=== PATIENT | female | born 1960 | race Caucasian/White ===

== ENCOUNTER → 2020-05-18 | Outpatient (CLI) | payer BC, OTHER ==
[~2020-05-18] MED LIST: APIX5TAB PO; DEXL60CA2 PO; DIAZ5TAB4 PO; ENOX100S5 SQ; FLUT200B INH; LEVO112T2 PO; LIOT5TAB11 PO; METO-93 PO; MIRT-34 PO; POTA20TA89 PO; RIME75TA PO; ROSU5TAB PO; TRIA1TAB5 PO; fioricet PO
[2020-05-18 15:44] LABS: BASOPHILS % (AUTO) 1 % (0-1); EOSINOPHILS % (AUTO) 3 % (1-7); LYMPHOCYTES % (AUTO) 32 % (22-44); MEAN CORPUSCULAR HEMOGLOBIN 25.9 pg (27.0-34.8); MEAN CORPUSCULAR HGB CONC 31.7 g/dL (32.4-35.8); MEAN PLATELET VOLUME 7.9 fL (7.4-10.4); MONOCYTES % (AUTO) 11 % (2-9); NEUTROPHILS % (AUTO) 53 % (42-75); PLATELET COUNT 288 x10^3/uL (130-400); RED CELL DISTRIBUTION WIDTH 17.1 % (9.6-15.2)
[2020-05-18 15:47] LABS: ALANINE AMINOTRANSFERASE 24 U/L (12-78); ALBUMIN 3.9 g/dL (3.4-5.0); ANION GAP 8 mmol/L (5-15); CALCIUM 9.8 mg/dL (8.5-10.1); CHLORIDE 104 mmol/L (98-107); CREATININE 1.13 mg/dL (0.55-1.02)
[2020-05-18 15:50] LABS: ALKALINE PHOSPHATASE 90 U/L (45-117); BILIRUBIN,TOTAL 0.3 mg/dL (0.2-1.0); TOTAL PROTEIN 8.1 g/dL (6.4-8.2)
[2020-05-18 15:51] LABS: MD NO
[2020-05-18 16:00] LABS: INTERNATIONAL NORMALIZED RATIO 0.96 (0.93-1.1); PROTHROMBIN TIME 9.9 Seconds (9.6-11.5)
== END | disposition home or self-care (01) ==
LOC: STAR 14:15
PROVIDERS: ATTEND Thoracic Surgery (Cardiothoracic Vascular Surgery)
DX: Z01.812 Encounter for preprocedural laboratory examination (principal); K44.9 Diaphragmatic hernia without obstruction or gangrene; Z20.828 Contact with and (suspected) exposure to other viral communicable diseases
CPT/HCPCS: 36415; 80053; 85025; 85610; 85730; 87635; 93005

== ENCOUNTER 2020-05-23 06:03 | Observation (INO) | payer BC, OTHER ==
[~2020-05-23] VITALS: Ht 167.6 cm; Wt 103.0 kg
[~2020-05-23 06:03] MED LIST changes: -ENOX100S5 SQ
[2020-05-23] MEDS ORDERED: CHLORHEXIDINE 15 ML UDC ONE (06:37)
[2020-05-23] MEDS ORDERED: EPINEPHRINE 1 MG/ML, 1ML ONE (06:53)
[2020-05-23] MEDS ORDERED: BUPIVACAINE/PF 0.5% ONE (06:53)
[2020-05-23] MEDS ORDERED: LIDOCAINE-MPF 1%, 2ML INFIL ONE (07:00)
[2020-05-23] MEDS ORDERED: CHLORHEXIDINE 15 ML UDC MM ONE (07:00)
[2020-05-23] MEDS ORDERED: LACTATED RINGERS 1,000 ML IV SCH (07:00)
[2020-05-23] MEDS ORDERED: ENOX100S5 SQ (07:10)
[2020-05-23] MEDS ORDERED: MIDAZOLAM 1 MG/ML, 2ML ONE (07:19)
[2020-05-23] MEDS ORDERED: FENTANYL PF 250 MCG/5ML ONE (07:19)
[2020-05-23] MEDS ORDERED: PROMETHAZINE 25 MG/ML, 1ML IVPush PRN (07:30)
[2020-05-23] MEDS ORDERED: ONDANSETRON 2MG/ML, 2ML IVPush PRN (07:30)
[2020-05-23] MEDS ORDERED: LABETALOL 5MG/ML, 20ML IV PRN (07:30)
[2020-05-23] MEDS ORDERED: ACETAMINOPHEN 325 MG TABLET PO PRN (07:30)
[2020-05-23] MEDS ORDERED: hydrALAzine 20 MG/ML, 1ML IV PRN ×2 (07:30→09:30)
[2020-05-23] MEDS ORDERED: LORazepam 2 MG/ML, 1ML IVPush PRN (07:30)
[2020-05-23] MEDS ORDERED: METHOCARBAMOL 1,000 MG in DEXTROSE 5% 100 ML IV PRN (07:30)
[2020-05-23] MEDS ORDERED: PROMETHAZINE 25 MG SUPP PR PRN (07:30)
[2020-05-23] MEDS ORDERED: OXYcodone 5 MG/5 ML ORAL.SOL UDC PO PRN (07:30)
[2020-05-23] MEDS ORDERED: BUPIVACAINE/PF-EPI 0.25% 1:200K INFIL ONE (07:53)
[2020-05-23] MEDS ORDERED: GLYCOPYRROLATE 0.2MG/1ML, 5ML ONE (08:49)
[2020-05-23] MEDS ORDERED: NEOSTIGMINE 1 MG/ML, 10ML ONE (08:49)
[2020-05-23] MEDS ORDERED: ROCURONIUM 10MG/ML,5ML ONE (08:49)
[2020-05-23] MEDS ORDERED: PROPOFOL 10 MG/ML, 20ML ONE (08:49)
[2020-05-23] MEDS ORDERED: SUCCINYLCHOLINE 20 MG/ML, 10ML ONE (08:49)
[2020-05-23] MEDS ORDERED: SUGAMMADEX 200 MG/2 ML IVPush ONE (08:49)
[2020-05-23] MEDS ORDERED: DEXAMETHASONE 4 MG/ML, 1ML ONE (08:49)
[2020-05-23] MEDS ORDERED: CEFAZOLIN 1,000 MG ONE (08:49)
[2020-05-23] MEDS ORDERED: ONDANSETRON 2MG/ML, 2ML ONE ×2 (08:49→09:29)
[2020-05-23] MEDS ORDERED: KETOROLAC 30 MG/1 ML ONE (09:07)
[2020-05-23] MEDS ORDERED: LORazepam 2 MG/ML, 1ML IV PRN (09:30)
[2020-05-23] MEDS ORDERED: ENALAPRILAT 1.25 MG/ML, 2ML IV PRN (09:30)
[2020-05-23] MEDS ORDERED: KETOROLAC 30 MG/1 ML IV PRN (09:30)
[2020-05-23] MEDS: FLUTICASONE FUROATE 200MCG/INH INH SCH (09:30)
[2020-05-23] MEDS ORDERED: DIPHENHYDRAMINE 50 MG/ML, 1ML IV PRN (09:30)
[2020-05-23] MEDS ORDERED: PROMETHAZINE 12.5 MG SUPP PR PRN (09:30)
[2020-05-23] MEDS ORDERED: PROMETHAZINE 25 MG/ML, 1ML IM PRN (09:30)
[2020-05-23] MEDS: LACTATED RINGERS 1,000 ML IV SCH ×2 (09:30→17:30)
[2020-05-23] MEDS ORDERED: FENTANYL PF 100 MCG/2ML ONE (09:41)
[2020-05-23] MEDS ORDERED: PROMETHAZINE 25 MG/ML, 1ML ONE (09:45)
[2020-05-23] MEDS: FENTANYL PF 100 MCG/2ML IV PRN ×3 (09:45→10:00)
[2020-05-23] MEDS: HYDROmorphone 1 MG/ML, 1ML INJ IVPush PRN ×2 (10:05→10:10)
[2020-05-23] MEDS ORDERED: METHOCARBAMOL 1,000 MG in DEXTROSE 5% 100 ML IV ONE (10:06)
[2020-05-23] MEDS ORDERED: HYDROmorphone 1 MG/ML, 1ML INJ ONE (10:08)
[2020-05-23] MEDS ORDERED: OXYcodone 5 MG/5 ML ORAL.SOL UDC ONE (10:49)
[2020-05-23] MEDS ORDERED: ALBUTEROL HFA 90 MCG/SPRAY INH ONE (11:00)
[2020-05-23] MEDS: morphine SULFATE 10 MG/ML, 1ML IV PRN ×2 (13:28→17:10)
[2020-05-23] MEDS: ONDANSETRON 2MG/ML, 2ML IVPush PRN ×2 (13:35→21:55)
[2020-05-23] MEDS: FAMOTIDINE 20 MG/2 ML IV SCH (15:05)
[2020-05-23] MEDS: HYDROcodone/APAP 7.5-325MG/15ML UDC PO PRN ×3 (15:06→21:55)
[2020-05-23 19:41] VITALS: BP 125/72
[2020-05-23] MEDS ORDERED: ENOXAPARIN 30 MG/0.3 ML SQ SCH (21:00)
[2020-05-23] MEDS: ENOXAPARIN 100 MG/ML SQ SCH (21:54)
[2020-05-24] MEDS: morphine SULFATE 10 MG/ML, 1ML IV PRN (00:43)
[2020-05-24] MEDS: LACTATED RINGERS 1,000 ML IV SCH ×2 (00:47→09:30)
[2020-05-24 01:06] VITALS: BP 106/67
[2020-05-24] MEDS: FAMOTIDINE 20 MG/2 ML IV SCH (03:00)
[2020-05-24 05:28] VITALS: BP 105/68
[2020-05-24] MEDS ORDERED: LEVOTHYROXINE 112 MCG TABLET PO SCH (06:00)
[2020-05-24] MEDS: HYDROcodone/APAP 7.5-325MG/15ML UDC PO PRN ×2 (06:45→10:30)
[2020-05-24 07:49] VITALS: BP 130/75
[2020-05-24] MEDS: ENOXAPARIN 100 MG/ML SQ SCH (08:54)
[2020-05-24] MEDS: FLUTICASONE FUROATE 200MCG/INH INH SCH (09:00)
[2020-05-24] MEDS ORDERED: METOPROLOL SUCCINATE 50 MG TAB.ER.24H PO SCH (09:00)
[2020-05-24] MEDS ORDERED: LIOTHYRONINE 5 MCG TABLET PO SCH (09:00)
[2020-05-24 10:14] VITALS: BP 128/82
== END 2020-05-24 10:55 | disposition home or self-care (01) ==
LOC: OUT 06:03 → ORIP 09:02 → 4NE 11:25 → OUT 11:57 → 4NE 13:14 → DCLOUNGE 05-24 10:46
PROVIDERS: ADMIT Thoracic Surgery (Cardiothoracic Vascular Surgery); ATTEND Thoracic Surgery (Cardiothoracic Vascular Surgery)
DX: K44.9 Diaphragmatic hernia without obstruction or gangrene (principal); K21.9 Gastro-esophageal reflux disease without esophagitis; E03.9 Hypothyroidism, unspecified; E78.00 Pure hypercholesterolemia, unspecified; I10 Essential (primary) hypertension; Z86.711 Personal history of pulmonary embolism; Z90.710 Acquired absence of both cervix and uterus; Z91.040 Latex allergy status; Z79.899 Other long term (current) drug therapy; Z86.718 Personal history of other venous thrombosis and embolism
CPT/HCPCS: 43282; 96372; 96374; 96375; 96376; C1781; G0378; J0171; J0330; J0690; J1100; J1170; J1650; J1885; J2250; J2270; J2405; J2550; J2704; J2710; J2800; J3010; J7120; S0020